=== PATIENT | male | born 1995 | race Caucasian/White ===

== ENCOUNTER 2021-03-31 02:36 | Emergency (ER) | payer SELFPAY ==
[~2021-03-31] VITALS: Ht 182.9 cm; Wt 65.8 kg
[2021-03-31 02:36] VITALS: BP 152/88
[2021-03-31 03:05] LABS: BASOPHILS % (AUTO) 0 % (0-10); EOSINOPHILS # (AUTO) 0.2 10^3/uL (0.0-0.3); EOSINOPHILS % (AUTO) 3 % (0-10); HEMATOCRIT 47 % (40-54); LYMPHOCYTES # (AUTO) 2.3 10^3/uL (1.0-4.0); LYMPHOCYTES % (AUTO) 26 % (12-44); MEAN CORPUSCULAR HEMOGLOBIN 31 pg (25-34); MEAN CORPUSCULAR HGB CONC 34 g/dL (32-36); MEAN CORPUSCULAR VOLUME 92 fL (80-99); MEAN PLATELET VOLUME 9.7 fL (9.0-12.2); MONOCYTES # (AUTO) 0.7 10^3/uL (0.0-1.0); MONOCYTES % (AUTO) 7 % (0-12); NEUTROPHILS # (AUTO) 5.8 10^3/uL (1.8-7.8); NEUTROPHILS % (AUTO) 64 % (42-75); PLATELET COUNT 208 10^3/uL (130-400); WHITE BLOOD COUNT 9.1 10^3/uL (4.3-11.0)
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
[2021-03-31 03:15] LABS: ALBUMIN 4.3 GM/DL (3.2-4.5)
[2021-03-31 03:16] LABS: POTASSIUM 3.5 MMOL/L (3.6-5.0)
[2021-03-31 03:18] LABS: TOTAL PROTEIN 7.1 GM/DL (6.4-8.2)
[2021-03-31 03:20] LABS: BILIRUBIN,TOTAL 0.3 MG/DL (0.1-1.0)
[2021-03-31 03:22] LABS: CREATININE SERUM 0.96 MG/DL (0.60-1.30)
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
== END 2021-03-31 04:24 | disposition left against medical advice (07) ==
LOC: ER 02:40
DX: S01.21XA Laceration without foreign body of nose, initial encounter (principal); M54.9 Dorsalgia, unspecified; V89.2XXA Person injured in unspecified motor-vehicle accident, traffic, initial encounter
CPT/HCPCS: 36415; 70450; 71045; 72125; 72170; 80053; 85025